=== PATIENT | male | born 1985 | race Caucasian/White ===

== ENCOUNTER 2022-06-17 12:43 | Emergency (ER) | payer OTHER ==
[~2022-06-17] VITALS: Ht 160 cm; Wt 69.9 kg
[2022-06-17 13:23] VITALS: BP 137/84
--- NOTE | 2022-06-17 14:30 | NUR ---
37/M PRESENTS TO ED WITH C/O COUGH AND CONGESTION X2 DAYS, REPORTS NEGATIVE COVID TEST AT HOME TWO DAYS AGO. PAITENT DENIES FEVERS, CHILLS, N/V/D.
--- NOTE | 2022-06-17 14:32 | NUR ---
KRISTEN SWAB COLLECTED AND WALKED TO LAB
[2022-06-17] MEDS ORDERED: OLOP5DRO13 OP (15:44)
[2022-06-17 15:53] VITALS: BP 137/84
--- NOTE | 2022-06-17 15:53 | NUR ---
Patient discharged with v/s stable. Written and verbal after care instructions ABOUT VIRAL CONJUNCTIVITIS, VIRAL ILLNESS given and explained. Patient alert, oriented and verbalized understanding of instructions. Ambulatory with steady gait. All questions addressed prior to discharge. ID band removed. Patient advised to follow up with PMD. Rx of PATADAY given. Patient educated on indication of medication including possible reaction and side effects. Opportunity to ask questions provided and answered.
== END 2022-06-17 15:53 | disposition home or self-care (01) ==
LOC: MED 12:43
DX: J06.9 Acute upper respiratory infection, unspecified (principal); Z20.822 Contact with and (suspected) exposure to COVID-19; B30.9 Viral conjunctivitis, unspecified
CPT/HCPCS: 99283